=== PATIENT | male | born 1950 | race Caucasian/White ===

== ENCOUNTER → 2018-03-26 | Outpatient (CLI) | payer MEDICARE ==
[~2018-03-26] MED LIST: GADOBUTROL 10 MMOL/10 ML PFS ONE
== END | disposition home or self-care (01) ==
LOC: CFH 10:35
PROVIDERS: ATTEND Psychiatry & Neurology Psychiatry
DX: J32.0 Chronic maxillary sinusitis (principal); F03.91 Unspecified dementia, unspecified severity, with behavioral disturbance; R41.3 Other amnesia
CPT/HCPCS: 70553; A9585

== ENCOUNTER 2019-06-24 18:31 | Inpatient (IN) | payer MEDICARE ==
[~2019-06-24] VITALS: Ht 188 cm; Wt 83.6 kg
[2019-06-24 19:02] LABS: BASOPHILS # (AUTO) 0.01 x10^3/uL (0-0.1); BASOPHILS % (AUTO) 0 % (0-1); EOSINOPHILS # (AUTO) 0.05 x10^3/uL (0-0.4); EOSINOPHILS % (AUTO) 1 % (1-7); LYMPHOCYTES # (AUTO) 2.15 x10^3/uL (1-3.4); LYMPHOCYTES % (AUTO) 34 % (22-44); MD NO; MEAN CORPUSCULAR HEMOGLOBIN 31.6 pg (27.5-34.5); MEAN PLATELET VOLUME 6.6 fL (7.4-10.4); MONOCYTES # (AUTO) 0.59 x10^3/uL (0.2-0.8); MONOCYTES % (AUTO) 9 % (2-9); NEUTROPHILS # (AUTO) 3.56 x10^3/uL (1.8-6.8); NEUTROPHILS % (AUTO) 56 % (42-75); PLATELET COUNT 227 x10^3/uL (130-400); RED CELL DISTRIBUTION WIDTH 14.3 % (9.4-14.8)
[2019-06-24 19:11] LABS: ALANINE AMINOTRANSFERASE 35 U/L (12-78); ANION GAP 7 mmol/L (5-15); CALCIUM 8.8 mg/dL (8.5-10.1); CHLORIDE 107 mmol/L (98-107)
--- NOTE | 2019-06-24 19:11 | NUR ---
BIB EMS FROM PSYCHIATRIST'S OFFICE. PER EMS, PATIENT CHOKED HIS DURING THE NIGHT THEN DIDN'T REMEMBER THE INCIDENT. PT HAS HISTORY OF DEMENTIA. DOES NOT FEEL SAFE AT HOME. PT DENIES ANY MEDICAL COMPLAINTS. 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
[2019-06-24 19:14] LABS: SALICYLATE LEVEL < 1.7 mg/dL (2.8-20.0)
--- NOTE | 2019-06-24 19:16 | NUR ---
REPORT RECWEIVED FROM JOSEPH JACOBO. PLAN OF CARE DISCUSSED.
[2019-06-24] MEDS ORDERED: LEVO125T5 PO (19:20)
[2019-06-24] MEDS ORDERED: DONE10TA14 PO (19:20)
--- NOTE | 2019-06-24 19:20 | NUR ---
ANJELICAN STANDING AT DOORWAY AND WALKING IN TO STARK, WANTING TO LEAVE. PATIENT INSTRUCTED TAHT HE NEEDS TO STAY IN HIS ROOM AT THIS TIME.
[2019-06-24] MEDS ORDERED: MEMA10TA PO (19:21)
[2019-06-24 19:22] LABS: ALKALINE PHOSPHATASE 40 U/L (45-117); BILIRUBIN,TOTAL 0.5 mg/dL (0.2-1.0); CREATININE 0.99 mg/dL (0.7-1.3); TOTAL PROTEIN 7.4 g/dL (6.4-8.2)
[2019-06-24] MEDS ORDERED: LORA-445 PO (19:22)
[2019-06-24] MEDS ORDERED: DIVA-59 PO (19:22)
[2019-06-24 19:25] LABS: MICROSCOPIC NOT IND
[2019-06-24] MEDS ORDERED: LORazepam 1MG TABLET ONE (19:25)
[2019-06-24] MEDS ORDERED: LORazepam 1MG TABLET PO ONE (19:30)
--- NOTE | 2019-06-24 19:30 | NUR ---
PATIENT WALKING AROUND ROOM, APPEARS RESTLESS. QUESTIONING WHY HE IS HERE, SAYING HE DOESN'T HAVE ANY PROBLEMS. PATIENT MEDICATED PER EMAR, TOELRATED WELL. WILL WAIT UNTIL PATIENT IS LESS RESTLESS TO PUT BELONGINGS IN TO BAGS AND LOCKED IN SAFE STORAGE.
[2019-06-24 19:34] LABS: CULTURE INDICATED? NO
[2019-06-24 19:37] LABS: AMPHETAMINE SCREEN, URINE Negative (Negative); BARBITURATE SCREEN, URINE Negative (Negative); BENZODIAZEPINE SCREEN, URINE Negative (Negative); CANNABINOID SCREEN, URINE Negative (Negative); COCAINE SCREEN, URINE Negative (Negative); METHADONE SCREEN, URINE Negative (Negative); OPIATE SCREEN, URINE Negative (Negative)
--- NOTE | 2019-06-24 19:49 | NUR ---
: BLAISE JANE [phone] DOES NOT WANT TO SEE PATIENT, BUT WANTS TO BE UPDATED PLAN OF CARE PROGRESSES DAUGHTER: GENNA FERNANDEZ [phone]
[2019-06-24] MEDS ORDERED: ZIPRASIDONE 20 MG INJ IM ONE ×2 (19:54→20:00)
--- NOTE | 2019-06-24 19:57 | NUR ---
DPOKE WITH DR. ZHANG ABOUT PATIENT BEHAVIOR, AND PATIENT TO BE PUT ON A HOLD
--- NOTE | 2019-06-24 20:07 | NUR ---
PATIENT MEDICATED PER EMAR. BELONGINGS PLACED IN PATIENT BELONGINGS BAG AND LOCKED IN SAFE STORAGE
--- NOTE | 2019-06-24 20:34 | NUR ---
SITTER AT DOOR. PATIENT NEEDING CONSTANT REORIENTING AND INSTRUCTION TO STAY IN BED.
[2019-06-24] MEDS ORDERED: DIPHENHYDRAMINE 50 MG/ML, 1ML ONE (20:47)
--- NOTE | 2019-06-24 20:51 | NUR ---
PATIENT INCREASINGLY RESTLESS AND AGITATED, TRYING TO GET OUT OF BED. MD VICENTE NOTIFIED. PATIENT MEDICATED PER EMAR. TOELRATED WELL. LIGHTS TURNED OFF, PATINET GIVEN BLANKETS AND PILLOW, ENCOURAGING PATIENT TO SLEEP
[2019-06-24] MEDS ORDERED: DIPHENHYDRAMINE 50 MG/ML, 1ML IM ONE (21:00)
--- NOTE | 2019-06-24 21:39 | NUR ---
REPORT GIVEN TO JOSEPH COBURN. PLAN OF CARE DISCUSSED.
--- NOTE | 2019-06-24 21:44 | NUR ---
2 OF 2 BELONGINGS BAG WILL BE TRANSPORTED UP WITH PATIENT
[2019-06-24 22:00] VITALS: BP 118/75
[2019-06-24 22:10] VITALS: BP 118/75
[2019-06-25] MEDS ORDERED: LORazepam 0.5MG TABLET PO PRN
[2019-06-25 00:25] VITALS: BP 112/70
[2019-06-25] MEDS ORDERED: POLYETHYLENE GLYCOL 17 GM PACKET PO PRN (00:30)
[2019-06-25] MEDS ORDERED: ACETAMINOPHEN 325 MG TABLET PO PRN (00:30)
[2019-06-25] MEDS: MEMANTINE 10MG TABLET PO SCH ×3 (00:47→20:36)
[2019-06-25] MEDS: DIVALPROEX 250 MG TABLET.DR PO SCH ×3 (01:32→20:36)
[2019-06-25] MEDS: LEVOTHYROXINE 125 MCG TABLET PO SCH (06:09)
[2019-06-25 07:05] VITALS: BP 146/84
[2019-06-25] MEDS: DONEPEZIL 10 MG TABLET PO SCH (09:22)
[2019-06-25 13:49] VITALS: BP 135/84
[2019-06-25 20:17] VITALS: BP 120/75
[2019-06-26] MEDS ORDERED: LORazepam 1MG TABLET PO ONE (01:43)
[2019-06-26 02:26] VITALS: BP 149/81
[2019-06-26 05:57] VITALS: BP_SYST 138; BP_SYST 142; BP_DIAS 72; BP_DIAS 86
[2019-06-26] MEDS: LEVOTHYROXINE 125 MCG TABLET PO SCH (05:58)
[2019-06-26 07:16] VITALS: BP 118/74
[2019-06-26] MEDS: DIVALPROEX 250 MG TABLET.DR PO SCH ×2 (08:18→20:18)
[2019-06-26] MEDS: MEMANTINE 10MG TABLET PO SCH ×2 (08:18→20:18)
[2019-06-26] MEDS: DONEPEZIL 10 MG TABLET PO SCH (08:18)
[2019-06-26 12:30] VITALS: BP 126/71
[2019-06-26] MEDS ORDERED: LORazepam 2 MG/ML, 1ML IVPush PRN (18:00)
[2019-06-26 19:08] VITALS: BP 130/89
[2019-06-27 02:05] VITALS: BP 129/76
[2019-06-27 06:21] VITALS: BP 142/79
[2019-06-27] MEDS: LEVOTHYROXINE 125 MCG TABLET PO SCH (06:23)
[2019-06-27] MEDS: DIVALPROEX 250 MG TABLET.DR PO SCH ×2 (10:11→21:20)
[2019-06-27] MEDS: MEMANTINE 10MG TABLET PO SCH ×2 (10:12→21:20)
[2019-06-27] MEDS: DONEPEZIL 10 MG TABLET PO SCH (10:12)
[2019-06-27 18:43] VITALS: BP 133/83
[2019-06-28 03:28] VITALS: BP 149/88
[2019-06-28 06:24] VITALS: BP 123/78
[2019-06-28] MEDS: LEVOTHYROXINE 125 MCG TABLET PO SCH (06:25)
[2019-06-28] MEDS: DIVALPROEX 250 MG TABLET.DR PO SCH ×2 (07:15→20:50)
[2019-06-28] MEDS: DONEPEZIL 10 MG TABLET PO SCH (07:15)
[2019-06-28] MEDS: MEMANTINE 10MG TABLET PO SCH ×2 (07:15→20:50)
[2019-06-28 07:42] VITALS: BP 125/73
[2019-06-28 12:26] VITALS: BP 135/76
[2019-06-28 19:19] VITALS: BP 132/82
[2019-06-29 03:12] VITALS: BP 148/95
[2019-06-29 05:44] VITALS: BP 127/79
[2019-06-29] MEDS: LEVOTHYROXINE 125 MCG TABLET PO SCH (05:45)
[2019-06-29 07:11] VITALS: BP 134/64
[2019-06-29] MEDS: MEMANTINE 10MG TABLET PO SCH ×2 (09:10→20:13)
[2019-06-29] MEDS: DIVALPROEX 250 MG TABLET.DR PO SCH ×2 (09:10→20:13)
[2019-06-29] MEDS: DONEPEZIL 10 MG TABLET PO SCH (09:10)
[2019-06-29 12:50] VITALS: BP 124/74
[2019-06-29 19:00] VITALS: BP 132/75
[2019-06-30 01:56] VITALS: BP 129/82
[2019-06-30] MEDS: LEVOTHYROXINE 125 MCG TABLET PO SCH (05:46)
[2019-06-30 07:36] VITALS: BP 128/78
[2019-06-30] MEDS: DONEPEZIL 10 MG TABLET PO SCH (07:45)
[2019-06-30] MEDS: MEMANTINE 10MG TABLET PO SCH (07:45)
[2019-06-30] MEDS: DIVALPROEX 250 MG TABLET.DR PO SCH (07:45)
[2019-06-30 13:59] VITALS: BP 133/77
[2019-06-30] MEDS ORDERED: FLU VACC QS2019-20 36MOS UP/PF 0.5 ML IM-VACC ONE (15:00)
== END 2019-06-30 16:53 | DRG 884 ==
LOC: ED 20:26 → EDIP 21:14 → 3N 21:50
PROVIDERS: ADMIT Family Medicine; ATTEND Family Medicine
DX: F03.91 Unspecified dementia, unspecified severity, with behavioral disturbance (principal); Z88.8 Allergy status to other drugs, medicaments and biological substances; E03.9 Hypothyroidism, unspecified; Z66 Do not resuscitate; Z87.891 Personal history of nicotine dependence
CPT/HCPCS: 36415; 80053; 80164; 80307; 81003; 82607; 84443; 85025; 86480; 90686; 96372; 99285; G0378; J3486; J1200

== ENCOUNTER 2019-08-07 09:23 | Inpatient (IN) | payer MEDICARE ==
[~2019-08-07] VITALS: Ht 185.4 cm; Wt 85.0 kg
[~2019-08-07 09:23] MED LIST changes: +DIVA-59 PO; +DONE10TA14 PO; -GADOBUTROL 10 MMOL/10 ML PFS ONE; +LEVO125T5 PO; +LORA-445 PO; +MEMA10TA PO
--- NOTE | 2019-08-07 09:23 | NUR ---
69 YR OLD MALE ARRIVED VIA EMS FROM [facility]. PER REPORT PT HAD 1ST TIME WITNESSED SEIZURE, REPORT TONIC CLONIC. PT WAS COMBATIVE WITH EMS ARRIVED WITH SOFT RESTRAINTS IN PLACE. PT CONT WITH SOME AGITATION. REPEATIVE AT TIMES. PT PLACED ON MONITORS, ST PER MONITOR. AUTO BP AND PULSE OX IN PLACE. PT WITH C/O LEFT CHEST PAIN. "IT HURTS TO TAKE DEEP BREATHS. PER PTS "YOU MAY HAVE FALLEN ON THE CHAIR"
--- NOTE | 2019-08-07 09:45 | NUR ---
PT AND PTS DENY LACTOSE ALLERGY
[2019-08-07 09:53] LABS: BASOPHILS # (AUTO) 0.02 x10^3/uL (0-0.1); BASOPHILS % (AUTO) 0 % (0-1); EOSINOPHILS # (AUTO) 0.02 x10^3/uL (0-0.4); EOSINOPHILS % (AUTO) 0 % (1-7); LYMPHOCYTES # (AUTO) 2.42 x10^3/uL (1-3.4); LYMPHOCYTES % (AUTO) 30 % (22-44); MD NO; MEAN CORPUSCULAR HEMOGLOBIN 31.8 pg (27.5-34.5); MEAN CORPUSCULAR HGB CONC 33.6 g/dL (33.2-36.2); MEAN CORPUSCULAR VOLUME 94.7 fL (81-97); MEAN PLATELET VOLUME 6.7 fL (7.4-10.4); MONOCYTES % (AUTO) 4 % (2-9); NEUTROPHILS # (AUTO) 5.27 x10^3/uL (1.8-6.8); NEUTROPHILS % (AUTO) 66 % (42-75); PLATELET COUNT 314 x10^3/uL (130-400); RED BLOOD COUNT 5.21 x10^6/uL (4.38-5.82); RED CELL DISTRIBUTION WIDTH 13.2 % (9.4-14.8)
--- NOTE | 2019-08-07 09:53 | NUR ---
PT TO CT VIA YANDY
[2019-08-07 10:05] LABS: ALBUMIN 3.7 g/dL (3.4-5.0); ANION GAP 21 mmol/L (5-15); CALCIUM 8.4 mg/dL (8.5-10.1); CHLORIDE 104 mmol/L (98-107)
--- NOTE | 2019-08-07 10:07 | NUR ---
PT RETURNED TO ROOM
[2019-08-07 10:08] LABS: ALANINE AMINOTRANSFERASE 34 U/L (12-78); ALKALINE PHOSPHATASE 45 U/L (45-117); BILIRUBIN,TOTAL 0.6 mg/dL (0.2-1.0); CREATININE 1.47 mg/dL (0.7-1.3); TOTAL PROTEIN 6.9 g/dL (6.4-8.2); TROPONIN I < 0.015 ng/mL (0.000-0.045)
[2019-08-07 10:14] LABS: SALICYLATE LEVEL < 1.7 mg/dL (2.8-20.0)
--- NOTE | 2019-08-07 10:21 | NUR ---
PT WITH ONGOING C/O LEFT CHEST/RIB PAIN. UNABLE TO GET COMFORTABLE ON GURNEY. PT UNABLE TO GIVE NUMBER ON SCALE. PT SBA TO RECLINER CHAIR. SR PER MONITOR, AUTO BP AND PULSE OX IN PLACE. PTS AT BEDSIDE. AWAITING TEST RESULTS.
[2019-08-07 10:29] LABS: AMPHETAMINE SCREEN, URINE Negative (Negative); BARBITURATE SCREEN, URINE Negative (Negative); BENZODIAZEPINE SCREEN, URINE Negative (Negative); CANNABINOID SCREEN, URINE Negative (Negative); COCAINE SCREEN, URINE Negative (Negative); METHADONE SCREEN, URINE Negative (Negative); OPIATE SCREEN, URINE Negative (Negative)
[2019-08-07] MEDS ORDERED: DIVA-59 PO (10:57)
[2019-08-07] MEDS ORDERED: CARB15DR59 EACHEYE (10:57)
[2019-08-07] MEDS ORDERED: HYDR28.423 TP (10:57)
--- NOTE | 2019-08-07 11:03 | NUR ---
DR MARX AT BEDSIDE TO RE-EVAL PT AND UPDATE ON POC. UNDERSTANDING VERBALIZED. PTS AT BEDSIDE. SR PER MONITOR. NO SEIZURE ACTIVITY NOTED. PT SITTING UP ON A CHAIR FOR COMFORT.
[2019-08-07] MEDS ORDERED: LORazepam 0.5MG TABLET ONE (11:16)
--- NOTE | 2019-08-07 11:18 | NUR ---
DISCUSSED WITH DR MARX. PT DRUG SCREEN NEGATIVE. PER MED REC PT TAKES ATIVAN DAILY. HAS NOT HAD FOR 3 DAYS. PT MEDICATED ORDERED.
[2019-08-07] MEDS ORDERED: VALPROATE SODIUM 100 MG/ML, 5ML IV SCH ×2 (11:30→16:00)
[2019-08-07] MEDS ORDERED: LORazepam 0.5MG TABLET PO ONE (11:30)
--- NOTE | 2019-08-07 11:39 | NUR ---
PT RETURNED TO ROOM FROM CT VIA W/C. PT YIN WELL. CONT SR PER MONITOR. NO SEIZURE ACTIVITY NOTED. AWAITING ROOM ASSIGNMEN.
[2019-08-07] MEDS ORDERED: OMNIPAQUE 350 MG/ML, 100ML BOTTLE ONE (11:40)
[2019-08-07] MEDS ORDERED: VALPROATE SODIUM 500 MG in DEXTROSE 5% 100 ML IV SCH ×2 (12:00→20:00)
--- NOTE | 2019-08-07 12:15 | NUR ---
late entry d/t patient care: break RN note: report received from JOSEPH Pete. Bed assigned to [employer] shortly after start of Yanci's break. report called by this RN to receiving JOSEPH Owens. valproic acid gtt inititiated and infusing per emar via IV pump at time of transport. pt transported with and this RN to [employer], pts belongings with pt upon transfer. pt a&o to baseline , nsr on vehicle monitor technician, nadn upon transfer.
[2019-08-07 12:23] LABS: MICROSCOPIC NOT IND
[2019-08-07 12:26] LABS: CULTURE INDICATED? NO
[2019-08-07 12:42] VITALS: BP 147/79
[2019-08-07] MEDS ORDERED: ONDANSETRON ODT 4 MG PO PRN (13:30)
[2019-08-07] MEDS ORDERED: LORazepam 2 MG/ML, 1ML IVPush PRN (13:30)
[2019-08-07] MEDS ORDERED: DOCUSATE 100 MG CAPSULE PO PRN (13:30)
[2019-08-07] MEDS ORDERED: ONDANSETRON 2MG/ML, 2ML IVPush PRN (13:30)
[2019-08-07] MEDS ORDERED: LIDODERM 5% PATCH TD PRN (13:30)
[2019-08-07] MEDS ORDERED: POLYETHYLENE GLYCOL 17 GM PACKET PO PRN (13:30)
[2019-08-07] MEDS: HEPARIN 5,000 UNITS/ML, 1ML SQ SCH ×2 (13:41→20:48)
[2019-08-07] MEDS: SODIUM CHLORIDE 0.9% 1,000 ML IV SCH (13:42)
[2019-08-07 13:47] VITALS: BP 147/79
[2019-08-07] MEDS: ACETAMINOPHEN 325 MG TABLET PO PRN ×2 (14:52→20:31)
[2019-08-07] MEDS: VALPROIC ACID 250 MG CAPSULE PO SCH (20:30)
[2019-08-07] MEDS: MEMANTINE 10MG TABLET PO SCH (20:31)
[2019-08-07 20:39] VITALS: BP 136/85
[2019-08-07] MEDS ORDERED: DONEPEZIL 10 MG TABLET PO SCH (21:00)
[2019-08-08] MEDS: SODIUM CHLORIDE 0.9% 1,000 ML IV SCH ×2 (03:00→13:00)
[2019-08-08 03:13] VITALS: BP 159/75
[2019-08-08 05:22] LABS: BASOPHILS # (AUTO) 0.02 x10^3/uL (0-0.1); BASOPHILS % (AUTO) 0 % (0-1); EOSINOPHILS # (AUTO) 0.07 x10^3/uL (0-0.4); EOSINOPHILS % (AUTO) 1 % (1-7); LYMPHOCYTES # (AUTO) 1.79 x10^3/uL (1-3.4); LYMPHOCYTES % (AUTO) 27 % (22-44); MD NO; MEAN CORPUSCULAR HEMOGLOBIN 31.4 pg (27.5-34.5); MEAN CORPUSCULAR HGB CONC 33.8 g/dL (33.2-36.2); MEAN PLATELET VOLUME 6.8 fL (7.4-10.4); MONOCYTES # (AUTO) 0.57 x10^3/uL (0.2-0.8); MONOCYTES % (AUTO) 8 % (2-9); NEUTROPHILS # (AUTO) 4.28 x10^3/uL (1.8-6.8); NEUTROPHILS % (AUTO) 64 % (42-75); PLATELET COUNT 250 x10^3/uL (130-400); RED BLOOD COUNT 4.85 x10^6/uL (4.38-5.82); RED CELL DISTRIBUTION WIDTH 13.7 % (9.4-14.8)
[2019-08-08] MEDS: HEPARIN 5,000 UNITS/ML, 1ML SQ SCH ×2 (05:30→13:41)
[2019-08-08 05:31] LABS: CALCIUM 8.4 mg/dL (8.5-10.1); CHLORIDE 109 mmol/L (98-107)
[2019-08-08 05:35] LABS: ANION GAP 5 mmol/L (5-15); CREATININE 0.85 mg/dL (0.7-1.3)
[2019-08-08 06:25] VITALS: BP 121/69
[2019-08-08] MEDS ORDERED: LEVOTHYROXINE 125 MCG TABLET PO SCH (09:00)
[2019-08-08] MEDS: VALPROIC ACID 250 MG CAPSULE PO SCH (09:09)
[2019-08-08] MEDS: MEMANTINE 10MG TABLET PO SCH (09:09)
[2019-08-08 13:11] VITALS: BP 128/74
[2019-08-08] MEDS ORDERED: VALP250C59 PO (13:58)
[2019-08-08] MEDS ORDERED: LIDO700A20 TD (13:58)
== END 2019-08-08 16:13 | DRG 100 ==
LOC: ED 11:04 → EDIP 11:14 → 4WST 12:21
PROVIDERS: ADMIT Family Medicine; ATTEND Family Medicine
DX: G40.409 Other generalized epilepsy and epileptic syndromes, not intractable, without status epilepticus (principal); N17.0 Acute kidney failure with tubular necrosis; S22.32XA Fracture of one rib, left side, initial encounter for closed fracture; E87.2 Acidosis; F03.91 Unspecified dementia, unspecified severity, with behavioral disturbance; K90.0 Celiac disease; E03.9 Hypothyroidism, unspecified; E66.3 Overweight; R73.9 Hyperglycemia, unspecified; N40.0 Benign prostatic hyperplasia without lower urinary tract symptoms; W18.39XA Other fall on same level, initial encounter; Y93.89 Activity, other specified; Y92.89 Other specified places as the place of occurrence of the external cause; Y99.8 Other external cause status; Z79.899 Other long term (current) drug therapy; Z91.09 Other allergy status, other than to drugs and biological substances; Z68.24 Body mass index [BMI] 24.0-24.9, adult
CPT/HCPCS: 36415; 70450; 70551; 71045; 71260; 74177; 80048; 80053; 80164; 80307; 81003; 82140; 83605; 84484; 85025; 93005; 99285; G0378; J1644; Q9967; J7030

== ENCOUNTER 2019-12-12 17:25 | Inpatient (IN) | payer MEDICARE ==
[~2019-12-12] VITALS: Ht 182.9 cm; Wt 100.3 kg
[~2019-12-12 17:25] MED LIST changes: +CARB15DR59 EACHEYE; +HYDR28.423 TP; +LIDO700A20 TD; +VALP250C59 PO
[2019-12-12 18:07] LABS: ALANINE AMINOTRANSFERASE 15 U/L (12-78); ANION GAP 9 mmol/L (5-15); CHLORIDE 105 mmol/L (98-107); CREATININE 1.02 mg/dL (0.7-1.3)
[2019-12-12 18:09] LABS: BASOPHILS # (AUTO) 0.04 x10^3/uL (0-0.1); BASOPHILS % (AUTO) 1 % (0-1); EOSINOPHILS # (AUTO) 0.01 x10^3/uL (0-0.4); EOSINOPHILS % (AUTO) 0 % (1-7); LYMPHOCYTES # (AUTO) 1.15 x10^3/uL (1-3.4); LYMPHOCYTES % (AUTO) 16 % (22-44); MD NO; MEAN CORPUSCULAR HEMOGLOBIN 32.1 pg (27.5-34.5); MEAN CORPUSCULAR HGB CONC 33.9 g/dL (33.2-36.2); MEAN CORPUSCULAR VOLUME 94.5 fL (81-97); MEAN PLATELET VOLUME 6.5 fL (7.4-10.4); MONOCYTES # (AUTO) 0.43 x10^3/uL (0.2-0.8); MONOCYTES % (AUTO) 6 % (2-9); NEUTROPHILS # (AUTO) 5.46 x10^3/uL (1.8-6.8); NEUTROPHILS % (AUTO) 77 % (42-75); PLATELET COUNT 249 x10^3/uL (130-400); RED BLOOD COUNT 5.06 x10^6/uL (4.38-5.82); RED CELL DISTRIBUTION WIDTH 14.3 % (9.4-14.8)
[2019-12-12 18:11] LABS: ALKALINE PHOSPHATASE 41 U/L (45-117); BILIRUBIN,TOTAL 0.6 mg/dL (0.2-1.0); TOTAL PROTEIN 7.3 g/dL (6.4-8.2)
[2019-12-12 19:27] LABS: MICROSCOPIC NOT IND
[2019-12-12] MEDS ORDERED: LORazepam 2 MG/ML, 1ML ONE ×2 (19:30→19:48)
--- NOTE | 2019-12-12 19:35 | NUR ---
SITTER AT BEDSIDE NOTED PT TO HAVING SEIZURE AT THIS TIME AND PULLED ASSISTANCE FROM HALLWAY PT STARTED BECOMING RESTLESS AND AGITATED. PT NOTED TO BE POSTICTAL, CONFUSED, AND VERY AGRESSIVE, ATTEMPTING TO SWING AT STAFF AND GET OUT OF BED. STAFF ATTEMPTED TO HOLD PT IN SAFE POSITION PIV WAS ESTABLISHED. PT MEDICATED WITH ATIVAN PER MAR WITH LITTLE EFFECT. PT CONTINUED TO BE AGGRESIVE AND RESTLESS. ORDER FOR HALDOL IM ADMINISTERED. PT CONTINUED TO SWING, 4 PT SOFT RESTRAINTS WERE APPLIED FOR SAFETY OF PT AND STAFF. ORDER FOR MORE IV ATIVAN, PIV NOT FLUSHING AND NEW LINE STARTED. SOON AFTER PT BEGAN TO RELAX AND NOW IS ASLEEP WITH VSS, NAD NOTED, AND NO INJURY FROM EVENTS. PT TO BE ADMITTED INPATIENT, WILL CONTINUE TO MONITOR.
[2019-12-12] MEDS ORDERED: HALOPERIDOL 5 MG/ML ONE (19:38)
[2019-12-12] MEDS ORDERED: HALOPERIDOL 5 MG/ML IV ONE (20:00)
[2019-12-12] MEDS ORDERED: LORazepam 2 MG/ML, 1ML IVPush ONE ×2 (20:00)
[2019-12-12] MEDS ORDERED: LEVETIRACETAM 1,000 MG in SODIUM CHLORIDE 0.9% 100 ML IV ONE (20:00)
[2019-12-12] MEDS ORDERED: ZIPRASIDONE 20 MG INJ IM ONE (20:00)
--- NOTE | 2019-12-12 20:10 | NUR ---
PT SLEEPING, VSS, NAD NOTED, SITTER AT BEDSIDE, PT IN SOFT RESTRAINTS, SAFETY ENSURED, SEIZURE PADDING ON BED RAILS
[2019-12-12] MEDS ORDERED: ALOE VERA TP SCH (21:00)
[2019-12-12] MEDS ORDERED: ONDANSETRON 2MG/ML, 2ML IVPush PRN (21:00)
[2019-12-12] MEDS: MEMANTINE 10MG TABLET PO SCH (21:00)
[2019-12-12] MEDS ORDERED: DONEPEZIL HCL 10 MG PO SCH (21:00)
[2019-12-12] MEDS ORDERED: MELATONIN 5 MG TABLET PO PRN (21:00)
[2019-12-12] MEDS ORDERED: HALOPERIDOL 5 MG/ML IM PRN (21:00)
[2019-12-12] MEDS ORDERED: LIDODERM 5% PATCH TD PRN (21:00)
[2019-12-12] MEDS ORDERED: CARBOXYMETHYLCELLULOSE SODIUM EACHEYE SCH (21:00)
[2019-12-12] MEDS ORDERED: [UNRECOGNIZED DRUG - OTHER] TP SCH (21:00)
[2019-12-12] MEDS ORDERED: HYDROCORTISONE TP SCH (21:00)
[2019-12-12] MEDS: LEVETIRACETAM 500 MG in SODIUM CHLORIDE 0.9% 100 ML IV SCH (21:10)
[2019-12-12] MEDS: LACTATED RINGERS 1,000 ML IV SCH (21:18)
--- NOTE | 2019-12-12 21:20 | NUR ---
PT CONTINUES TO SLEEP IN [facility] AT THIS TIME, PT ORIENTED X 1 AT BASELINE, PT WITHDRAWS AND REACTS FROM PHYSICAL STIMULI, VSS, NAD NOTED, SITTER AT BEDSIDE
--- NOTE | 2019-12-12 22:31 | NUR ---
PT NOTED TO BECOMING AGITATED AGAIN AND TRYING TO GET OUT OF BED, ORDERED GEODON ADMINSITERED AT THIS TIME PER MAR, PT APPEARS TO BE RESTING COMFORTABLY NOW, VSJOSÉ MIGUEL Jaramillo NOTED, SAFETY ENSURED AND SITTER AT BEDSIDE
[2019-12-13] MEDS: LACTATED RINGERS 1,000 ML IV SCH (07:00)
--- NOTE | 2019-12-13 07:49 | NUR ---
ECG DONE, PT SLEEPING
[2019-12-13] MEDS ORDERED: LORazepam 0.5MG TABLET PO SCH (09:00)
--- NOTE | 2019-12-13 09:13 | NUR ---
TASK RN: PT RESTING ON YANDY. NADN. MENDOZAS. SITTER REMAINS AT BEDSIDE. YELLOW SLIP SENT TO PHARMACY FOR MEDS PER JUL.
[2019-12-13] MEDS ORDERED: LORazepam 2 MG/ML, 1ML IVPush PRN (10:30)
[2019-12-13] MEDS ORDERED: CARBOXYMETHYLCELLULOSE SODIUM EACHEYE SCH (10:42)
[2019-12-13 10:55] VITALS: BP 119/80
[2019-12-13] MEDS ORDERED: HYDROCORTISONE CRM 1%, 30GM TP PRN (11:00)
[2019-12-13] MEDS: MEMANTINE 10MG TABLET PO SCH ×2 (11:28→20:36)
[2019-12-13] MEDS: LEVOTHYROXINE 125 MCG TABLET PO SCH (11:28)
[2019-12-13] MEDS: LEVETIRACETAM 500 MG in SODIUM CHLORIDE 0.9% 100 ML IV SCH ×2 (11:28→23:39)
[2019-12-13] MEDS ORDERED: RISPERIDONE 1 MG TAB.RAPDIS PO PRN (14:30)
[2019-12-13 15:10] VITALS: BP_SYST 124; BP_SYST 130; BP_DIAS 71; BP_DIAS 83
[2019-12-13] MEDS: ACETAMINOPHEN 325 MG TABLET PO PRN (18:14)
[2019-12-13 18:28] VITALS: BP 124/75
[2019-12-13] MEDS: DONEPEZIL 10 MG TABLET PO SCH (20:36)
[2019-12-13] MEDS: VALPROIC ACID 250 MG CAPSULE PO SCH (20:36)
[2019-12-13] MEDS: ARTIFICIAL TEARS 15 DROP/ML BOTTLE EACHEYE SCH (20:36)
[2019-12-14 01:56] VITALS: BP 117/72
[2019-12-14] MEDS: LEVOTHYROXINE 125 MCG TABLET PO SCH (05:36)
[2019-12-14 07:21] VITALS: BP 132/74
[2019-12-14] MEDS: ACETAMINOPHEN 325 MG TABLET PO PRN (08:54)
[2019-12-14] MEDS: DONEPEZIL 10 MG TABLET PO SCH (08:54)
[2019-12-14] MEDS: MEMANTINE 10MG TABLET PO SCH (08:54)
[2019-12-14] MEDS: ARTIFICIAL TEARS 15 DROP/ML BOTTLE EACHEYE SCH (08:54)
[2019-12-14] MEDS: VALPROIC ACID 250 MG CAPSULE PO SCH (08:54)
[2019-12-14] MEDS: LEVETIRACETAM 500 MG in SODIUM CHLORIDE 0.9% 100 ML IV SCH (11:11)
[2019-12-14 13:23] VITALS: BP 113/72
[2019-12-14] MEDS ORDERED: RISP-2 PO (14:49)
[2019-12-14] MEDS ORDERED: LEVE500T53 PO (14:49)
== END 2019-12-14 16:50 | DRG 101 ==
LOC: ED 19:53 → EDIP 21:37 → 4EST 12-13 10:29
PROVIDERS: ADMIT Family Medicine; ATTEND Hospitalist
DX: G40.909 Epilepsy, unspecified, not intractable, without status epilepticus (principal); F02.81 Dementia in other diseases classified elsewhere, unspecified severity, with behavioral disturbance; E03.9 Hypothyroidism, unspecified; G30.1 Alzheimer's disease with late onset; J32.0 Chronic maxillary sinusitis; Z79.899 Other long term (current) drug therapy; Z87.891 Personal history of nicotine dependence; Z91.018 Allergy to other foods
CPT/HCPCS: 36415; 70450; 71045; 80053; 80164; 81003; 84443; 85025; 93005; 95819; G0378; J1953; J3486; J1630; J2060; J7120